=== PATIENT | male | born 1965 | race Two or more races ===

== ENCOUNTER 2024-09-23 12:09 | Emergency (ER) | payer SELFPAY ==
[~2024-09-23] VITALS: Ht 162.6 cm; Wt 82.0 kg
[2024-09-23 12:21] VITALS: BP 134/84; PULSE 96; RESP 16; TEMP 98.6; O2SAT 96
[2024-09-23] MEDS ORDERED: TETR15DR17 OP (17:09)
== END 2024-09-23 17:24 | disposition home or self-care (01) ==
LOC: ER 12:09
DX: H57.89 Other specified disorders of eye and adnexa (principal); Z88.6 Allergy status to analgesic agent
CPT/HCPCS: 99281